=== PATIENT | male | born 1965 | race Caucasian/White ===

== ENCOUNTER 2018-12-16 05:55 | Inpatient (IN) | payer OTHER ==
[~2018-12-16] VITALS: Ht 182.9 cm; Wt 90.3 kg
[2018-12-16] VITALS (12 sets, daily range): BP systolic 114–147; BP diastolic 71–95
[2018-12-16] MEDS ORDERED: LR 1000ml 1,000 ML IVLG SCH (06:22)
[2018-12-16] MEDS ORDERED: fentaNYL 100 mcg/2 mL IV PRN (06:30)
[2018-12-16] MEDS ORDERED: Metoclopramide 10mg/2ml Inj IVP PRN ×2 (06:30→07:30)
[2018-12-16] MEDS ORDERED: LORazepam Inj 2mg/ml 1ml IV PRN (06:30)
[2018-12-16] MEDS ORDERED: Acetaminophen (Non formulary) 100 ML IV ONE (06:30)
[2018-12-16] MEDS ORDERED: Ketorolac 30mg Inj IV PRN ×2 (06:30)
[2018-12-16] MEDS ORDERED: Meperidine 50mg/ml Inj(FOR RIGORS ONLY) IVP PRN (06:30)
[2018-12-16] MEDS ORDERED: HYDROcodone/Acetamin 7.5/325 tab ORAL PRN ×3 (06:30→07:30)
[2018-12-16] MEDS ORDERED: Atropine Sulfate 0.4mg/ml inj IVP PRN (06:30)
[2018-12-16] MEDS ORDERED: Hydromorphone 0.5mg/0.5ml inj IVP PRN (06:30)
[2018-12-16] MEDS ORDERED: Midazolam 2mg/2ml Inj IVP PRN (06:30)
[2018-12-16] MEDS ORDERED: DiphenhydrAMINE 50mg/ml Inj IVP PRN (06:30)
[2018-12-16] MEDS ORDERED: Norco 5mg/325mg tab ORAL PRN ×2 (06:30→07:30)
[2018-12-16] MEDS ORDERED: oxyCODONE HCL/Acetaminophen 5/325mg ORAL PRN (06:30)
[2018-12-16] MEDS ORDERED: Vancomycin 1gm vial IVPB ONE ×2 (06:39→09:38)
[2018-12-16] MEDS ORDERED: Thrombin 5000 units TOPIC ONE ×4 (06:40→11:01)
[2018-12-16] MEDS ORDERED: Heparin 5000 units/ml inj ONE (06:40)
[2018-12-16] MEDS ORDERED: Gelfoam Size TOPIC ONE ×2 (06:41→11:01)
[2018-12-16] MEDS ORDERED: Bacitracin 50000 Units Vial ONE ×2 (06:41→08:36)
[2018-12-16] MEDS ORDERED: Ropivacaine 5mg/ml Vial 30ml INJ ONE ×3 (06:41→10:43)
[2018-12-16] MEDS ORDERED: Bupivacaine w/Epi 0.5% 30ml Vial INJ ONE (06:41)
[2018-12-16] MEDS ORDERED: NKM (06:57)
[2018-12-16] MEDS ORDERED: Propofol 1,000mg/ 100ml btl IV ONE (07:00)
[2018-12-16] MEDS ORDERED: ceFAZolin sod 1 GM in NS 55 ML IVPB ONE (07:00)
[2018-12-16] MEDS ORDERED: LR 1000ml ONE (07:00)
[2018-12-16] MEDS ORDERED: Sterile Water Irrig 1000ml IRRIG ONE (07:00)
[2018-12-16] MEDS ORDERED: NS Irrig 4000ml IRRIG ONE (07:00)
[2018-12-16] MEDS ORDERED: Sodium Chloride 10ml vial INJ ONE (07:02)
[2018-12-16] MEDS ORDERED: Lidocaine 1% MPF 10mg/ml 5ml ONE (07:02)
[2018-12-16] MEDS ORDERED: Dexamethasone 4mg/ml vial ONE (07:02)
[2018-12-16] MEDS ORDERED: fentaNYL 100 mcg/2 mL IV ONE ×3 (07:06→12:20)
--- NOTE | 2018-12-16 07:21 | Pre-Procedure Note/Attestation ---
Pre-Procedure Note/Attestation Complete Prior to Procedure Planned Procedure: not applicable Procedure Narrative: Stage 1 Anterior Lumbar interbody fusion of L45 with bone morphogenetic protein and Stage 2 Posterior aguirre laminectomy pedicle screw fixation of Lumbar 45 Indications for Procedure Pre-Operative Diagnosis: Lumbar 45 herniation and spondylolisthesis Attestation I attest that I discussed the nature of the procedure; its benefits; risks and complications; and alternatives (and the risks and benefits of such alternatives ), prior to the procedure, with the patient (or the patient's legal inventory representative). I attest that, if there was a reasonable possibility of needing a blood transfusion, the patient (or the patient's legal inventory representative) was given the [place] [employer] [facility] [employer] [facility] standardized written summary, pursuant to the [place] [employer] Blood Safety Act ([place] Health and Safety Code # 1645, as amended). I attest that I re-evaluated the patient just prior to the surgery and that there has been no change in the patient's H&P, except as documented below: Jerry Steward MD Dec 16, 2018 07:21
--- NOTE | 2018-12-16 07:22 | Brief Operative Note ---
Immediate Post Operative Note Operative Note Chief Complaint: Back pain and radiculopathy Pre-op Diagnosis: Lumbar 45 herniation and spondylolisthesis Procedure: Stage 1 Anterior Lumbar interbody fusion of L45 with bone morphogenetic protein and Stage 2 Posterior aguirre laminectomy pedicle screw fixation of Lumbar 45 Post-op Diagnosis: same as pre-op Findings: consistent w/pre-op dx studies Surgeon: Bin Unload Associate: Bharat Anesthesia: general Specimen: none Complications: none Condition: stable Fluids: ivf Estimated Blood Loss: minimal Drains: none Implant(s) used?: Yes - Nuvasive brigade 14mm, Synthes screws [id number] Jerry Steward MD Dec 16, 2018 07:22
--- NOTE | 2018-12-16 07:24 | Anethesia Preoperative Eval ---
Anesthesia Pre-op PMH/ROS General Date of Evaluation: Dec 16, 2018 Time of Evaluation: 07:11 Anesthesiologist: Ed ASA Score: ASA 1 Mallampati Score Class I : Soft palate, uvula, fauces, pillars visible Class II: Soft palate, uvula, fauces visible Class III: Soft palate, base of uvula visible Class IV: Only hard plate visible Mallampati Classification: Class II Surgeon: Bin Diagnosis: Back Pain Surgical Procedure: ALIF L4-5, Posterior Pedicle Screws Anesthesia History: none Family History: no anesthesia problems Allergies: Coded Allergies: No Known Allergies (Unverified , 12/14/18) Medications: see eMAR Patient NPO?: Yes NPO Date: Dec 15, 2018 NPO Time: 2358 Past Medical History Cardiovascular: Reports: other - Calcified Aorta, Iliac A. Anesthesia Pre-op Phys. Exam Physician Exam Last Vital Signs Date Time Temp Pulse Resp B/P (MAP) Pulse Ox O2 Delivery O2 Flow Rate FiO2 12/16/18 06:58 97.7 62 20 119/75 (90) 97 12/16/18 06:23 Room Air Constitutional: NAD Neurologic: CN 2-12 intact Cardiovascular: RRR Respiratory: CTA Gastrointestinal: S/NT/ND Airway Exam Mallampati Score: Class II MO: full ROM: full Teeth: intact Anesthesia Pre-op A/P Risk Assessment & Plan Assessment: ASA 1 Plan: GA, SED, GlideScope Go Status Change Before Surgery: Yes Pre-Antibiotics Dru Grams Ancef IV Given Within 1 Hr of Incision: Yes Time Given: 07:31 Paul Jeronimo MD Dec 16, 2018 07:24
[2018-12-16] MEDS ORDERED: Morphine Sulfate 2mg/ml Inj(IV/IM USE ONLY) IV PRN (07:30)
[2018-12-16] MEDS ORDERED: HYDROmorphone 1mg/ml Carpuject IVP PRN (07:30)
[2018-12-16] MEDS ORDERED: Naloxone 0.4mg/ml Inj IVP PRN (07:30)
[2018-12-16] MEDS ORDERED: Morphine Sulfate 4mg/ml Inj (IV USE ONLY) IV PRN (07:30)
[2018-12-16] MEDS ORDERED: Milk of Magnesia 30ml Ud ORAL PRN (07:30)
[2018-12-16] MEDS ORDERED: Zemuron 50mg/5ml Inj IV ONE (08:22)
--- NOTE | 2018-12-16 08:47 | Immediate Post-Op Evaluation ---
Immediate Post-Op Evalulation Immediate Post-Op Evalulation Procedure: ALIF L4-5, Posterior Pedicle Screws Date of Evaluation: Dec 16, 2018 Time of Evaluation: 13:17 IV Fluids: 1000 LR Blood Products: 0 Estimated Blood Loss: 75 Urinary Output: 250 Blood Pressure Systolic: 145 Blood Pressure Diastolic: 87 Pulse Rate: 92 Respiratory Rate: 16 O2 Sat by Pulse Oximetry: 100 Temperature (Fahrenheit): 99.3 Pain Score (1-10): 2 Nausea: No Vomiting: No Complications 0 Patient Status: awake, reacts, patent, extubated, none Hydration Status: adequate Dru Grams Ancef IV Given Within 1 Hr of Incision: Yes Time Given: 07:31 Paul Jeronimo MD Dec 16, 2018 08:47
--- NOTE | 2018-12-16 08:48 | 48 Hour Post Anesthesia Eval ---
Post Anesthesia Evaluation Procedure: ALIF L4-5, Posterior Pedicle Screws Date of Evaluation: Dec 16, 2018 Time of Evaluation: 15:23 Blood Pressure Systolic: 132 0: 78 Pulse Rate: 83 Respiratory Rate: 18 Temperature (Fahrenheit): 98.4 O2 Sat by Pulse Oximetry: 100 Airway: patent Nausea: No Vomiting: No Pain Intensity: 2 Hydration Status: adequate Cardiopulmonary Status: Stable Mental Status/LOC: patient returned to baseline Follow-up Care/Observations: 0 Post-Anesthesia Complications: 0 Follow-up care needed: N/A Paul Jeronimo MD Dec 16, 2018 08:48
[2018-12-16] MEDS ORDERED: Lidocaine 1% Plain 30 ml INJ ONE ×2 (09:04→10:54)
[2018-12-16] MEDS ORDERED: Heparin 5000 units/ml inj IV ONE (09:34)
[2018-12-16] MEDS ORDERED: NS Irrig 2000ml IRRIG ONE (09:36)
[2018-12-16] MEDS ORDERED: Glycopyrrolate 0.2mg/ml 1ml Vial ONE (11:04)
[2018-12-16] MEDS ORDERED: Neostigmine 1mg/ml 10ml Inj ONE (11:04)
--- NOTE | 2018-12-16 14:30 | NUR ---
NURSE NOTES: Estefani CHUNG brought patient by bed in stable condition. Alert and oriented x4. Complain of moderate pain and pain medication given by recovery nurse. Will continue to monitor. Surgical dressing intact and dry. IV dressing intact and dry. No bleeding or swelling on IV site. Belonging given to family member. Bed lowest position. Call light within reach. Will continue to monitor.
[2018-12-16] MEDS ORDERED: Chloraseptic Spray 20mL Bottle ORAL PRN (14:36)
[2018-12-16] MEDS: NS w/KCl 20mEq 1,000 ML IV SCH (15:34)
[2018-12-16] MEDS: ceFAZolin sod 1 GM in D5W 55 ML IV SCH ×2 (15:35→23:33)
[2018-12-16] MEDS: Morphine Sulfate 4mg/ml Inj (IV USE ONLY) IV PRN ×2 (15:41→20:42)
--- NOTE | 2018-12-16 15:45 | Diagnostic Imaging Report ---
INDICATION: Pain, intraoperative TECHNIQUE: Intraoperative imaging Fluoroscopy time: 101 seconds Total dose: 1 mGym2 Total number of images: 21 COMPARISON: None FINDINGS: Intraoperative imaging demonstrates surgical tool superimposed over what is presumably the L4-5 disc. Subsequent images document placement of anterior fusion hardware and a disc spacer L4-5, subsequently placement of posterior fusion hardware at L4-5. IMPRESSION: Intraoperative imaging, as described
[2018-12-16] MEDS ORDERED: Artificial Tears 1.4% Op Soln BOTH EYES PRN (17:30)
--- NOTE | 2018-12-16 19:00 | Operative Note - Dictated ---
DATE OF OPERATION: 12/16/2018 SURGEONS: 1. Hernandez Nicholson M.D. (for the approach). 2. Jerry Steward M.D. (for the spine procedure). ANESTHESIOLOGIST: Paul Jernoimo M.D. ANESTHESIA: General endotracheal. PREOPERATIVE DIAGNOSIS: Disk disease, L4-L5 (1 interspace). POSTOPERATIVE DIAGNOSIS: Disk disease, L4-L5 (1 interspace). OPERATIVE PROCEDURE: 1. Muscle-sparing anterior abdominal extraperitoneal approach for anterior lumbar interbody fusion, L4-L5 (1 interspace). 2. Mobilization of left iliac artery and aorta. 3. Mobilization of left iliac vein. 4. Ligation of iliolumbar vein. 5. Exposure of the anterior surface of the spine at L4-L5 (1 interspace). INFORMED CONSENT: The procedure of anterior access for an anterior lumbar interbody fusion was explained in detail preoperatively via the phone and repeated in the preoperative holding area on the day of surgery by myself and Dr. Steward. The risks including hemorrhage, infection, vascular injury, ureteral injury, nerve injury, visceral injury, retrograde ejaculation, and lymphedema were explained in detail. The patient stated that he understood the procedure, its rationale and risks. He stated that he had no further questions and accepted the procedures outlined above. Background information, indications for surgery, description of operative findings, and specimens removed will be contained in Dr. Steward's operative report. OPERATIVE FINDINGS PERTINENT TO THE APPROACH: The patient had palpable arteriosclerotic aortoiliac disease, which was nonobstructing. All remaining retroperitoneal structures were normal. OPERATIVE PROCEDURE: The patient was brought to the operating room in stable condition. Monitoring was instituted with arterial line, ECG, O2 saturation monitor, and blood pressure cuff. A pulse oximeter was placed on the left foot to monitor circulation to the left lower extremity. The patient was induced with anesthesia without any difficulty. The patient was prepared and draped in sterile fashion. Using x-ray and fluoroscopy, the level of the L4-L5 disk was marked on the skin. A left transverse incision was made just below the level of the umbilicus going from the midline to the edge of the left rectus muscle. The incision was carried down through the subcutaneous tissue to the rectus fascia. The rectus fascia was incised with the cautery with extension into the fibers of the external oblique aponeurosis. Elevation of the rectus fascia away from the anterior surface of the muscle was carried out for a distance of approximately 5 cm caudad and cephalad. This allowed for retraction of the rectus muscle both medially and laterally in order to obtain direct A-P access to the spine. The inferior epigastric vessels were identified and preserved. The posterior rectus sheath was incised and carefully from the peritoneum, taking care not to enter the peritoneal cavity. The peritoneum was bluntly dissected away from the undersurface of the internal oblique muscle. Careful blunt dissection was used to elevate the peritoneum anteriorly until the psoas muscle was identified. The ureter was also identified and swept upwards with the peritoneum and its contents. Further dissection was used to expose the anterior surface of the left common iliac artery. The left common iliac artery and aorta were noted to have palpable arteriosclerotic disease. A Holcomb retractor was placed into the retroperitoneum lateral to the rectus muscle. A lap sponge was inserted over the psoas muscle and pushed superiorly to keep the abdominal contents out of the way with Jakub retractor. Careful sharp and blunt dissection was used to expose the entire length of the common iliac artery to its origin at the aortic bifurcation. Exposure of the L4-L5 disk was carried out as follows: Dissection along the lateral wall of the artery was carried out to expose the lateral border of the left common iliac vein, which lied under and slightly to the right of the artery. With extreme care, the left iliac vein was exposed in its entirety and deep dissection carried out to expose the iliolumbar vein. The iliolumbar vein was carefully doubly ligated proximally and distally and transected. Any other venous tributaries in the area were controlled with cautery and/or clips. This allowed for mobilization of the iliac vessels and aorta anteriorly and to the right, to allow proper visualization of the anterior surface of the spine at L4-L5. This was done with careful blunt dissection in order to peel away the common iliac vein from the anterior longitudinal ligament to which it is very closely approximated. After skeletonizing the iliac vessels all the way to the aortic bifurcation, a malleable retractor was placed under the vein and artery in order to elevate the vessels anteriorly together with the aorta. Careful dissection along the anterior surface of the spine was carried out to preserve the sympathetic chains laterally, as well as the sympathetic plexus, which lies anteriorly overlying the aortic bifurcation. Further careful sharp and blunt dissection was carried out to expose the anterior surface of the spine at L4-L5 disk space all the way to its right lateral surface. Any segmental vessels lying along the anterior surface of the affected vertebral bodies were transected between clips and/or cauterized in order to adequately elevate the aorta from the anterior surface of the spine. The psoas muscle was from the lateral border of the spine, on the left, using blunt dissection. Use of the electrocautery was kept to a minimum in this area to avoid injury to the sympathetic fibers. After proper skeletonization and mobilization of the vessels and preservation of all vital structures, the exposure was complete and the Holcomb-[place] retractor combination was removed and the table held retractor system deployed. The retractor blades were placed for exposure of the L4-L5 disk as follows: First retractor blade was slipped under the vessels and its lipped tip brought to the right side of the spine. It was used to elevate the vessels away from the anterior surface of the spine. This allowed exposure and direct A-P approach to the anterior surface of the spine. Another retractor blade was placed on the left side of the spine to complete the approach. Additional retractor blades were placed superiorly and inferiorly. A needle was placed to identify the midline and appropriate level under fluoroscopy. Dr. Steward proceeded to perform the diskectomy, partial vertebrectomy, and fusion using the appropriate technique and hardware. After the diskectomy and fusion was completed, irrigation with antibiotic solution was carried out. The integrity of the iliac vessels was checked to make sure that there was no tear or thrombosis of the vein. There was adequate flow through the artery with no evidence of spasm or thrombosis. A further check for hemostasis was made and the integrity of the ureter was verified. The peritoneum was allowed to return to its anatomical position. The posterior rectus sheath was closed with a continuous suture of 2-0 Vicryl. The anterior rectus sheath was closed with a continuous suture of #1 Vicryl. A continuous subcuticular/subdermal suture of 2-0 Vicryl was used to approximate the subcutaneous tissue and skin. Steri-Strips and sterile dressing were applied. The patient remained in the operating room, in stable condition, under anesthesia and prepared for the posterior portion of the procedure. There were excellent dorsalis pedis and posterior tibial pulses in both feet. The left foot oxygen saturation monitor showed a triphasic waveform with 100% oxygen saturation, consistent with preoperative baseline. The estimated blood loss was minimal and approximately 20 mL. Manual and visual sweeps were correct. Final sponge, needle, and instrument counts were verified as correct x2. Hernandez Nicholson M.D. DR: Horacio JOB#: [id number] CC: Jerry Steward M.D.; Fax#: [phone]
--- NOTE | 2018-12-16 19:30 | NUR ---
HAND-OFF: Report given to Kimmy RN. Patient in stable condition.
--- NOTE | 2018-12-16 19:41 | NUR ---
NURSE NOTES: Received report from Tyree CHUNG. Pt A&O x4, laying semi-fowlers in bed. No signs of pain or distress. Pt has ice pack on anterior dressing. IV site dry & intact, infusing fluids. Surgical dressings C/D/I. [place] patent & draining yellow urine. SCDs on bilateral lower extremities. Call light in reach, bed in lowest position, side rails up x2. Will continue to monitor pt.
--- NOTE | 2018-12-16 20:02 | Cardiology Progress Note ---
Assessment/Plan Assessment/Plan [id number] doing well post op dvt ppx IS doing well Objective Last 24 Hour Vital Signs Date Time Temp Pulse Resp B/P (MAP) Pulse Ox O2 Delivery O2 Flow Rate FiO2 12/16/18 15:00 98.5 93 20 138/84 (102) 97 12/16/18 14:30 98.2 95 20 139/84 (102) 97 12/16/18 14:16 98.9 93 17 133/84 100 Nasal Cannula 3 12/16/18 14:05 89 15 133/85 100 Nasal Cannula 3 12/16/18 13:50 96 17 133/82 100 Nasal Cannula 3 12/16/18 13:35 90 15 137/88 100 Nasal Cannula 3 12/16/18 13:25 89 13 132/93 100 Nasal Cannula 3 12/16/18 13:16 84 18 121/95 100 Simple Mask 6 12/16/18 13:11 90 18 147/89 100 Simple Mask 6 12/16/18 13:06 99.3 93 16 145/87 100 Simple Mask 6 12/16/18 13:06 83 18 100 12/16/18 13:05 92 16 100 12/16/18 06:58 97.7 62 20 119/75 (90) 97 12/16/18 06:23 Room Air Jose Alfredo Thompson MD Dec 16, 2018 20:02
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
--- NOTE | 2018-12-16 22:45 | Consultation ---
DATE OF CONSULTATION: 12/16/2018 CARDIOLOGY CONSULTATION: CONSULTING PHYSICIAN: Jose Alfredo Thompson M.D. REFERRING PHYSICIAN: Jerry Steward M.D. REASON FOR REFERRAL: Postop medical care. HISTORY OF PRESENT ILLNESS: This is a 53-year-old gentleman, who was seen postoperatively by Dr. Steward. The patient has done well. He had a history of back pain and radiculopathy with L4-L5 herniation and spondylolisthesis and underwent a procedure by Dr. Steward today. The patient is seen postoperatively. The patient at this time looks comfortable. Denies any chest pain or shortness of breath. No dizziness or lightheadedness. No heart pounding or palpitation. PAST MEDICAL HISTORY: Fairly unremarkable. Does not really have any major medical problems. He has had a history of right shoulder surgery previously. ALLERGIES: No known drug allergies. SOCIAL HISTORY: Drinks couple of beers 4 or 5 times a week. There is no tobacco. He wanted to use occasional marijuana for his pain control because of his back. REVIEW OF SYSTEMS: GASTROINTESTINAL: Denies any nausea, vomiting, or diarrhea. No bowel movements yet. GENITOURINARY: Denies discomfort on urination. He has a Stallworth catheter in place. PULMONARY: Denies cough, wheezing, or sore throat. NEUROLOGICAL: Denies. FAMILY HISTORY: Positive for father being . Two sisters healthy. Family history of cancer of lung and breast present. MEDICATIONS: His medications prior to admission was negative. PHYSICAL EXAMINATION: GENERAL: Shows to be middle-aged gentleman, in no respiratory distress. NECK: Supple. No jugular venous distention. No abdominojugular reflux noted. LUNGS: Clear to auscultation and percussion. CARDIAC: S1 is normal. S2 is normal. Regular rhythm. There maybe a mid-systolic click. Diastolic murmur is noted. ABDOMEN: Soft, nontender. Positive bowel sounds. EXTREMITIES: There is no edema. He does have pneumatic compression stockings in place. NEUROLOGICAL: He is moving all 4 extremities without any difficulty. LABORATORY VALUES: Only available for preop. His EKG showed normal sinus rhythm, normal QRS axis, no ST or T-wave abnormalities. His blood tests PT, PTT are within normal limits. INR was normal. Sodium 141, potassium 4.4, chloride 102, bicarbonate 31, BUN of 10, creatinine 3.4, glucose of 94. Liver function tests were normal. White count 6, hemoglobin 16.1, platelet count of 275. ASSESSMENT AND PLAN: 1. Back pain with radiculopathy status post surgery. 2. Overweight. This patient was seen in medical consultation. The patient is doing relatively well postoperatively. His blood pressure is most recently 138/84 with temperature 98.5, heart rate of 93. He does have surgical dressing in place in the lower abdomen and left groin. He appears to be otherwise looking dry, clean, and no other significant issues. He has had some clear liquids, which he has tolerated. He has not got out of bed and he needs to do that hopefully by tomorrow morning with physical therapy. DVT prophylaxis with the use of pneumatic compression stockings. Incentive spirometry discussed with the patient the need for use. Hopefully once he is ambulatory, he is tolerating and taking p.o. medications, and able to have a bowel movement, he will be discharged over the next few days. Jose Alfredo Thompson M.D. DR: ANANDA JOB#: [id number] CC:
[2018-12-16] MEDS: Dexamethasone 4mg/ml vial IVP SCH (23:52)
[2018-12-17] VITALS: BP 141/84
[2018-12-17] MEDS: NS w/KCl 20mEq 1,000 ML IV SCH ×3 (01:31→22:24)
[2018-12-17 04:00] VITALS: BP 147/80
[2018-12-17] MEDS: Dexamethasone 4mg/ml vial IVP SCH ×3 (06:43→18:38)
[2018-12-17] MEDS: ceFAZolin sod 1 GM in D5W 55 ML IV SCH (06:43)
--- NOTE | 2018-12-17 07:51 | NUR ---
HAND-OFF: Report given to Mattie CHUNG. Pt is stable.
[2018-12-17 08:00] VITALS: BP 155/85
--- NOTE | 2018-12-17 08:00 | NUR ---
NURSE NOTES: Received report from Kimmy CHUNG. During rounds patient is awake alert and oriented x4, no s/s acute distress. Laying supine in bed. Anterior and posterior dressings assessed c/d/i. SCD's in place. IVF running per order, IV asymptomatic. Stallworth to gravity drainage, will remove today as ordered. Side rails upx3, bed low and locked, call light in reach. Will continue to monitor.
[2018-12-17] MEDS: Docusate Sod/Senna tab ORAL SCH ×2 (09:03→18:38)
[2018-12-17] MEDS: Docusate 100mg cap ORAL SCH ×2 (09:03→18:38)
--- NOTE | 2018-12-17 10:25 | General Surgery Progress Note ---
General Surgery-Progress Note Subjective Day of Surgery: 12/16/18 Reason for Consult POD 1 Procedure Performed Stage 1 Anterior Lumbar interbody fusion of L45 with bone morphogenetic protein and Stage 2 Posterior aguirre laminectomy pedicle screw fixation of Lumbar 45 Chief Complaint: incisional pain Symptoms: pain same, tolerating diet, passing flatus Additional Comments notices relief of leg pains which were present preop Objective Last 24 Hour Vital Signs Date Time Temp Pulse Resp B/P (MAP) Pulse Ox O2 Delivery O2 Flow Rate FiO2 12/17/18 08:00 97.5 69 18 155/85 (108) 100 12/17/18 04:00 100.0 63 18 147/80 (102) 97 12/17/18 00:00 98.0 66 20 141/84 (103) 99 12/16/18 21:00 Room Air 12/16/18 20:00 97.5 67 18 114/71 (85) 98 12/16/18 15:00 98.5 93 20 138/84 (102) 97 12/16/18 14:30 98.2 95 20 139/84 (102) 97 12/16/18 14:16 98.9 93 17 133/84 100 Nasal Cannula 3 12/16/18 14:05 89 15 133/85 100 Nasal Cannula 3 12/16/18 13:50 96 17 133/82 100 Nasal Cannula 3 12/16/18 13:35 90 15 137/88 100 Nasal Cannula 3 12/16/18 13:25 89 13 132/93 100 Nasal Cannula 3 12/16/18 13:16 84 18 121/95 100 Simple Mask 6 12/16/18 13:11 90 18 147/89 100 Simple Mask 6 12/16/18 13:06 99.3 93 16 145/87 100 Simple Mask 6 12/16/18 13:06 83 18 100 12/16/18 13:05 92 16 100 I&O Intake and Output 12/16/18 12/17/18 18:59 06:59 Intake Total 1300 ml 700 ml Output Total 775 ml 1800 ml Balance 525 ml -1100 ml Intake Oral 200 ml IV Total 1100 ml 700 ml Output Urine Total 700 ml 1800 ml Estimated Blood Loss 75 ml Dressing: dry Wound: clean, dry, intact Drains: none Abdomen: soft, flat Extremities: no edema Plan Additional Comments Continue with SCDs Incentive Sundeep 10x hr Dc Stallworth catheter Anticipate dc home Wednesday Ptherapy today and Wednesday Jerry Steward MD Dec 17, 2018 10:25
--- NOTE | 2018-12-17 11:40 | NUR ---
CASE MANAGEMENT: INITIAL REVIEW 53 YO M PRESENTED TO OUR ED FROM HOME CC: BACK PAIN PMHx: BACK PAIN SI:HERNIATED NUCLEUS PULPOSUS. PAIN. RADICULOPATHY. T 97.7 HR 62 RR 20 B/P 119/75 SATS 97% ON RA NO LABS TODAY IS: OR MEDS PATIENT ADMITTED TO MED/SURG @ 0722 DCP: PATIENT TO BE DISCHARGED TO HOME ONCE MEDICALLY CLEARED. PLAN OF CARE: Procedure Narrative: Stage 1 Anterior Lumbar interbody fusion of L45 with bone morphogenetic protein and Stage 2 Posterior aguirre laminectomy pedicle screw fixation of Lumbar 45 Pre-Operative Diagnosis: Lumbar 45 herniation and spondylolisthesis
--- NOTE | 2018-12-17 11:42 | NUR ---
NURSE NOTES: Satllworth catheter removed per MD order. Patient tolerated well. Patient given urinal and instructed to inform RN when voided. Will follow up and continue to monitor.
[2018-12-17 12:00] VITALS: BP 134/74
--- NOTE | 2018-12-17 14:17 | NUR ---
NURSE NOTES: Patient voided 550mL of clear, yellow urine. No discomfort with voiding reported by patient. Will continue to monitor.
--- NOTE | 2018-12-17 14:39 | Cardiology Progress Note ---
Assessment/Plan Assessment/Plan 1. Back pain with radiculopathy status post surgery. 2. Overweight. doing well post op day no 1 dvt ppx IS ambulate no bm but has had flatus home soon if able to eat and walk and hav bm Subjective Cardiovascular: Reports: lightheadedness - earlier but has since resolved ; Denies: chest pain Respiratory: Denies: shortness of breath Gastrointestinal/Abdominal: Denies: abdominal pain Genitourinary: Denies: burning Objective Last 24 Hour Vital Signs Date Time Temp Pulse Resp B/P (MAP) Pulse Ox O2 Delivery O2 Flow Rate FiO2 12/17/18 12:06 97.5 12/17/18 12:00 97.5 65 19 134/74 (94) 100 12/17/18 09:00 Room Air 12/17/18 08:00 97.5 69 18 155/85 (108) 100 12/17/18 04:00 100.0 63 18 147/80 (102) 97 12/17/18 00:00 98.0 66 20 141/84 (103) 99 12/16/18 21:00 Room Air 12/16/18 20:00 97.5 67 18 114/71 (85) 98 12/16/18 15:00 98.5 93 20 138/84 (102) 97 General Appearance: no apparent distress, alert Neck: supple Cardiovascular: normal rate, regular rhythm Respiratory/Chest: lungs clear Abdomen: normal bowel sounds, non tender, soft Extremities: no swelling Intake and Output 12/16/18 12/17/18 18:59 06:59 Intake Total 1300 ml 700 ml Output Total 775 ml 1800 ml Balance 525 ml -1100 ml Intake Oral 200 ml IV Total 1100 ml 700 ml Output Urine Total 700 ml 1800 ml Estimated Blood Loss 75 ml Jose Alfredo Thompson MD Dec 17, 2018 14:39
[2018-12-17 16:00] VITALS: BP 135/69
--- NOTE | 2018-12-17 16:31 | NUR ---
PT Note PT delvin completed, treatment initiated. Patient was able to ambulate with a FWW x 150 ft. Patient needs PT services to increase muscle strength and to instruct on safe transfers and gait. Addendum: 12/17/18 at 1632 by CASSANDRA HOOKS PT Amended: Links added.
--- NOTE | 2018-12-17 17:38 | NUR ---
NURSE NOTES: Anterior and posterior dressings changed per order. Patient tolerated well. Wound edges well approximated, no redness or purulent discharged noted from surgical wound. Will continue to monitor.
--- NOTE | 2018-12-17 19:27 | NUR ---
HAND-OFF: Report given to Kimmy RN. Patient in stable condition.
[2018-12-17 20:00] VITALS: BP 129/78
--- NOTE | 2018-12-17 20:04 | NUR ---
NURSE NOTES: Received report from Mattie CHUNG. Pt A&O x 4 laying supine in bed. No signs of pain or distress. Pt on RA w/ IS at bedside. IV site dry & intact, infusing fluids. Surgical dressing C/D/I. SCDs on. Call light in reach, bed in lowest position, side rails up x2. Will continue to monitor pt.
[2018-12-18] VITALS: BP 152/79
[2018-12-18 04:00] VITALS: BP 143/83
--- NOTE | 2018-12-18 07:14 | NUR ---
HAND-OFF: Report given to Mattie CHUNG. Pt is stable.
--- NOTE | 2018-12-18 07:30 | NUR ---
NURSE NOTES: Received report from Arsema RN. During rounds patient is awake alert and oriented x4, no s/s acute distress noted. Patient reports pain is well managed at this time, only complaint is some abdominal discomfort, patient reports he is passing a lot of flatus. Dressing c/d/i. Side rails upx3, bed low and locked, call light in reach. Will continue to monitor.
[2018-12-18 08:00] VITALS: BP 133/87
[2018-12-18] MEDS ORDERED: NORCO 10-325 T1 EACH ORAL ×2 (08:05→13:50)
[2018-12-18] MEDS: NS w/KCl 20mEq 1,000 ML IV SCH (08:12)
[2018-12-18] MEDS: Docusate Sod/Senna tab ORAL SCH (08:18)
[2018-12-18] MEDS: Docusate 100mg cap ORAL SCH (08:18)
[2018-12-18 12:00] VITALS: BP 136/79
--- NOTE | 2018-12-18 15:21 | NUR ---
NURSE NOTES: Patient discharged. Given discharge instructions, Rx, and raised toilet seat per order. All instructions and Rx signed for by the patient. The patient reported understanding of all the discharge instructions provided. Dr. Steward ordered for daily dressing changes for the patient upon discharge. I instructed the patient's , Franca how to change the dressings at the bedside and sent the patient with dressing change supplies, as well as education on dressing changes and surgical site infections. The patient and his Franca both report understanding of the provided education. Patient belongings signed for. Patient instructed not to drive until cleared by MD and patient reports understanding. IV removed intact. Patient escorted off unit at 1520 via wheelchair by RN to private vehicle. Patient's Franca will drive the patient home.
--- NOTE | 2018-12-18 16:45 | Discharge Summary ---
DATE OF ADMISSION: 12/16/2018 DATE OF DISCHARGE: 12/18/2018 DATE OF ADMISSION: 12/16/2018 DATE OF DISCHARGE: 12/18/2018 PROCEDURE PERFORMED DURING ADMISSION: Anterior and posterior lumbar fusion. REASON FOR ADMISSION: Lumbar L4-L5 herniation and spondylolisthesis. HOSPITAL COURSE/TREATMENT RENDERED: Nursing, IV fluid, SCDs. DISCHARGE PHYSICAL EXAM: 1. The patient was ambulating with and without the assistance of physical therapy. 2. Prior to discharge home incision was clean and dry with minimal swelling. 3. Follows commands. 4. Alert and oriented. 5. [place]worth discontinued, voiding. 6. Incentive spirometer at bedside. 7. IVF hep locked. MOTOR: Demonstrates expected postoperative bulk and tone. Moves biceps, triceps, and deltoid musculature on command. Moves hip flexors, quadriceps, tibialis anterior, EHL, gastrocsoleus musculature on command as well. TREATMENT RENDERED: 1. Daily nursing care. 2. Physical Therapy. 3. Occupational Therapy. 4. Intravenous medications 5. Oral medications. 6. Daily postoperative examinations by Spine surgery team. CONDITION OF PATIENT ON DISCHARGE: The condition on discharge is stable for discharge to home. DISCHARGE INSTRUCTIONS: Our specific instructions relating to physical activity, medications, diet, and follow-up care are detailed in our standard operative folder and were given to this patient prior to surgery. We will however summarize these briefly as stated below. Regarding physical activity we would like the patient to limit their flexion, extension and rotation. We also require a limitation on their bending lifting and twisting. All medication has been called in prior to surgery to their pharmacy of choice. They can resume their regular diet once tolerated. We would like them to shower and limit soaking the wound in a tub/Jacuzzi/the ocean for a period of one month or until the incision is completely healed. We will have them follow up in our office in three weeks time for their regularly scheduled appointment. They understand to call our office tomorrow to schedule the time for their three week followup appointment. The patient will notify us should they experience any increase in the severity of pain, redness/swelling/ or drainage from their incision. Jerry Steward M.D. DR: Erin JOB#: [id number] CC:
== END 2018-12-18 15:20 | disposition home or self-care (01) | DRG 460 ==
LOC: SDSOVERFLO 05:55 → 3E 14:34
PROC: 0SG00A0 Fusion of Lumbar Vertebral Joint with Interbody Fusion Device, Anterior Approach, Anterior Column, Open Approach (ICD-10-PCS; principal; 2018-12-16 07:00)
PROC: 01NB0ZZ Release Lumbar Nerve, Open Approach (ICD-10-PCS; principal; 2018-12-16 07:00)
PROC: 0ST20ZZ Resection of Lumbar Vertebral Disc, Open Approach (ICD-10-PCS; principal; 2018-12-16 07:00)
DX: M51.26 Other intervertebral disc displacement, lumbar region (principal); M43.16 Spondylolisthesis, lumbar region; M48.061 Spinal stenosis, lumbar region without neurogenic claudication
CPT/HCPCS: 36415; 72020; 76000; 86850; 86900; 86901; 87081; 94003; 94150; C9399; J2405; J2710